=== PATIENT | female | born 1965 | race Two or more races ===

== ENCOUNTER 2021-01-04 01:58 | Emergency (ER) | payer BC, OTHER ==
[~2021-01-04] VITALS: Ht 162.6 cm; Wt 52.2 kg
[2021-01-04 02:01] VITALS: BP 111/76
[2021-01-04 02:52] LABS: Basophils # (auto) 0.1 10 ^3/uL (0-0.2); Basophils % (auto) 0.6 % (0.0-2.0); Eosinophils # (auto) 0 10 ^3/uL (0-0.8); Eosinophils % (auto) 0.1 % (0.0-7.0); Hematocrit 44.8 % (36.0-46.0); Hemoglobin 15.3 g/dL (12.2-16.2); Lymphocytes # (auto) 1.1 10 ^3/uL (0.4-5.4); Lymphocytes % (auto) 11.8 % (10.0-50.0); Mean Corpuscular Hemoglobin 31.2 pg (28.0-32.0); Mean Corpuscular Hgb Conc. 34.1 g/dL (32.0-36.0); Mean Corpuscular Volume 91.4 fL (80.0-100.0); Monocytes # (auto) 0.3 10 ^3/uL (0-1.3); Neutrophils # (auto) 7.8 10 ^3/uL (1.6-8.6); Neutrophils % (auto) 84.5 % (37.0-80.0); Red Cell Distribution Width 12.4 % (11.8-14.3); White Blood Cell 9.2 10^3/uL (4.4-10.8)
[2021-01-04 03:06] LABS: INR 1.08 (0.9-1.15); Partial Thromboplastin Time 23.2 sec (23.6-33.0)
[2021-01-04 03:23] LABS: Albumin 3.7 g/dL (3.4-5.0); Amylase 56 U/L (25-115); Anion Gap 12 (5-15); Blood Urea Nitrogen 27 mg/dL (7-18); Carbon Dioxide 29 mmol/L (21-32); Chloride 101 mmol/L (98-107); Glucose 204 mg/dL (74-106); Lipase 204 U/L (73-393); Potassium 3.5 mmol/L (3.5-5.1); Sodium 142 mmol/L (136-145)
[2021-01-04 03:25] LABS: Alanine Aminotransferase 19 U/L (13-56); Aspartate Aminotransferase 17 U/L (15-37); BUN/Creatinine Ratio 27.3; GFR African American 74 mL/min; GFR Non-African American 61 mL/min
[2021-01-04 03:35] LABS: Alkaline Phosphatase 137 U/L (45-117); Bilirubin, Total 0.7 mg/dL (0.2-1.0); Total Protein 9.1 g/dL (6.4-8.2)
== END 2021-01-04 03:35 | disposition left against medical advice (07) ==
LOC: ER 01:58 → EDBD 01:58 → ER 03:35
DX: R10.84 Generalized abdominal pain (principal); R11.2 Nausea with vomiting, unspecified; Z53.21 Procedure and treatment not carried out due to patient leaving prior to being seen by health care provider
CPT/HCPCS: 36415; 71045; 74176; 80053; 82150; 83690; 83735; 84484; 85025; 85610; 85730; 93005

== ENCOUNTER 2021-01-04 09:13 | Emergency (ER) | payer BC ==
[~2021-01-04] VITALS: Ht 165.1 cm; Wt 49.9 kg
[2021-01-04] MEDS ORDERED: ONDANSETRON HCL 4 MG/2 ML VIAL IV ONE (10:30)
[2021-01-04] MEDS ORDERED: KETOROLAC TROMETH 30 MG/ML 1ML VIAL IV ONE (10:30)
[2021-01-04] MEDS ORDERED: SODIUM CHLORIDE 0.9% 1,000 ML IV ONE ×2 (10:30)
[2021-01-04 14:38] LABS: Urine Bacteria FEW /hpf (None Seen); Urine Blood 1+ /uL (Negative); Urine Hyaline Cast FEW /lpf (0 - 2); Urine Mucus FEW (None Seen); Urine Specific Gravity 1.036 (1.001-1.035); Urine WBC 8 /hpf (0 - 5)
[2021-01-04] MEDS ORDERED: cefTRIAXone 1GM/50ML D5W 50 ML IV ONE (15:30)
[2021-01-04 17:21] VITALS: BP 125/68
== END 2021-01-04 17:22 | disposition home or self-care (01) ==
LOC: ER 09:13
DX: N39.0 Urinary tract infection, site not specified (principal); I10 Essential (primary) hypertension
CPT/HCPCS: 81001; 96361; 96365; 96375; 99284; J0696; J1885; J2405; J7030